=== PATIENT | male | born 1980 | race Caucasian/White ===

== ENCOUNTER 2017-09-19 13:11 | Inpatient (IN) | payer MEDICAID, SELFPAY ==
[~2017-09-19] VITALS: Ht 180.3 cm; Wt 115.8 kg
[2017-09-19 13:34] LABS: BASOPHILS # (AUTO) 0.01 x10^3/uL (0-0.1); BASOPHILS % (AUTO) 0 % (0-1); EOSINOPHILS # (AUTO) 0.02 x10^3/uL (0-0.4); EOSINOPHILS % (AUTO) 0 % (1-7); LYMPHOCYTES # (AUTO) 0.69 x10^3/uL (1-3.4); LYMPHOCYTES % (AUTO) 8 % (22-44); MD NO; MEAN CORPUSCULAR HEMOGLOBIN 30.2 pg (27.5-34.5); MEAN CORPUSCULAR HGB CONC 34.1 g/dL (33.2-36.2); MEAN CORPUSCULAR VOLUME 88.4 fL (81-97); MEAN PLATELET VOLUME 8.2 fL (7.4-10.4); MONOCYTES # (AUTO) 0.83 x10^3/uL (0.2-0.8); MONOCYTES % (AUTO) 9 % (2-9); NEUTROPHILS # (AUTO) 7.59 x10^3/uL (1.8-6.8); NEUTROPHILS % (AUTO) 83 % (42-75); PLATELET COUNT 233 x10^3/uL (130-400); RED BLOOD COUNT 4.93 x10^6/uL (4.38-5.82); RED CELL DISTRIBUTION WIDTH 12.9 % (9.4-14.8)
[2017-09-19 13:47] LABS: ALANINE AMINOTRANSFERASE 25 U/L (12-78); ALBUMIN 2.9 g/dL (3.4-5.0); ANION GAP 10 mmol/L (5-15); CALCIUM 8.8 mg/dL (8.5-10.1); CHLORIDE 99 mmol/L (98-107); CREATININE 3.69 mg/dL (0.7-1.3)
[2017-09-19 13:49] LABS: ALKALINE PHOSPHATASE 105 U/L (45-117); BILIRUBIN,TOTAL 1.4 mg/dL (0.2-1.0); TOTAL PROTEIN 8.4 g/dL (6.4-8.2)
[2017-09-19] MEDS ORDERED: SODIUM CHLORIDE 0.9% 1,000 ML IV ONE ×2 (14:41→18:14)
[2017-09-19] MEDS ORDERED: SODIUM CHLORIDE FLUSH 10ML SYR IVF ONE (15:00)
[2017-09-19] MEDS ORDERED: SODIUM CHLORIDE 0.9% 1,000ML IVBOLUS ONE ×2 (15:00→18:30)
[2017-09-19] MEDS ORDERED: CEFOTETAN PMX 1GM/50ML 50 ML IV ONE (18:00)
[2017-09-19] MEDS ORDERED: SODIUM CHLORIDE FLUSH 10ML SYR IVF PRN (18:30)
[2017-09-19] MEDS ORDERED: CEFOTETAN PMX 1GM/50ML 50 ML ONE (18:50)
[2017-09-19] MEDS: SODIUM CHLORIDE 0.9% 1,000 ML IV SCH (18:55)
[2017-09-19] MEDS ORDERED: POLYETHYLENE GLYCOL 17 GM PACKET PO PRN (19:00)
[2017-09-19] MEDS ORDERED: DOCUSATE 100 MG CAPSULE PO PRN (19:00)
[2017-09-19] MEDS ORDERED: ONDANSETRON 2MG/ML, 2ML IVPush PRN (19:00)
[2017-09-19] MEDS ORDERED: ACETAMINOPHEN 325 MG TABLET PO PRN (19:00)
[2017-09-19 19:34] LABS: MICROSCOPIC INDICATED
[2017-09-19 19:50] LABS: CULTURE INDICATED? NO
[2017-09-19 20:19] VITALS: BP 147/79
[2017-09-19] MEDS: CEFOTETAN 2 GM in DEXTROSE 5% 50 ML IV SCH (21:06)
[2017-09-19] MEDS: METRONIDAZOLE PMX 500MG/100ML 100 ML IV SCH (21:53)
[2017-09-19] MEDS: FAMOTIDINE 20 MG TABLET PO SCH (22:00)
[2017-09-19] MEDS: morphine SULFATE 10 MG/ML, 1ML IVPush PRN (23:26)
[2017-09-20 02:08] VITALS: BP 130/75
[2017-09-20 05:44] LABS: ALBUMIN 2.2 g/dL (3.4-5.0); ANION GAP 10 mmol/L (5-15); CALCIUM 8.4 mg/dL (8.5-10.1); CHLORIDE 106 mmol/L (98-107)
[2017-09-20] MEDS: METRONIDAZOLE PMX 500MG/100ML 100 ML IV SCH ×3 (05:48→22:08)
[2017-09-20] MEDS: SODIUM CHLORIDE 0.9% 1,000 ML IV SCH ×2 (05:48→17:23)
[2017-09-20] MEDS: morphine SULFATE 10 MG/ML, 1ML IVPush PRN ×3 (05:48→14:15)
[2017-09-20 05:51] LABS: MEAN CORPUSCULAR HEMOGLOBIN 29.6 pg (27.5-34.5); MEAN CORPUSCULAR HGB CONC 33.4 g/dL (33.2-36.2); MEAN CORPUSCULAR VOLUME 88.7 fL (81-97); MEAN PLATELET VOLUME 7.8 fL (7.4-10.4); PLATELET COUNT 210 x10^3/uL (130-400); RED BLOOD COUNT 4.22 x10^6/uL (4.38-5.82)
[2017-09-20 05:59] LABS: ALANINE AMINOTRANSFERASE 21 U/L (12-78); ALKALINE PHOSPHATASE 85 U/L (45-117); BILIRUBIN,TOTAL 1.1 mg/dL (0.2-1.0); CREATININE 3.23 mg/dL (0.7-1.3); TOTAL PROTEIN 6.8 g/dL (6.4-8.2)
[2017-09-20 06:20] LABS: MD YES
[2017-09-20 06:23] LABS: BANDS%(MANUAL) 16 % (0-7); EOS#(MANUAL) 0.16 x10^3/uL (0.0-0.4); EOS% (MANUAL) 2 % (1-7); LYMPH#(MANUAL) 0.81 x10^3/uL (1-3.4); LYMPHS% (MANUAL) 10 % (22-44); MONOS#(MANUAL) 1.05 x10^3/uL (0.3-2.7); MONOS% (MANUAL) 13 % (2-9); SEG#(MANUAL) 4.78 x10^3/uL (1.8-6.8); SEGS% (MANUAL) 59 % (42-75)
[2017-09-20 06:24] LABS: <PLATELET ESTIMATE> ADEQUATE
[2017-09-20 06:25] LABS: <PLT MORPHOLOGY> NORMAL PLT MORPH
[2017-09-20] MEDS: SENNA/DOCUSATE TABLET PO SCH (09:00)
[2017-09-20] MEDS: CEFOTETAN 2 GM in DEXTROSE 5% 50 ML IV SCH ×2 (09:12→21:11)
[2017-09-20] MEDS: FAMOTIDINE 20 MG TABLET PO SCH (09:12)
[2017-09-20 09:30] VITALS: BP 139/84
[2017-09-20 14:16] LABS: CLOSTRIDIUM DIFFICILE ANTIGEN NEGATIVE; CLOSTRIDIUM DIFFICILE TOXIN NEGATIVE (Negative)
[2017-09-20 15:19] VITALS: BP 151/86
[2017-09-20 19:13] VITALS: BP 146/87
[2017-09-20] MEDS: OXYcodone IR 5MG TABLET PO PRN ×2 (21:11→21:40)
[2017-09-21 01:42] VITALS: BP 155/90
[2017-09-21] MEDS: SODIUM CHLORIDE 0.9% 1,000 ML IV SCH ×4 (01:57→22:08)
[2017-09-21] MEDS: OXYcodone IR 5MG TABLET PO PRN ×4 (04:33→20:46)
[2017-09-21 05:26] LABS: MEAN CORPUSCULAR HEMOGLOBIN 30.1 pg (27.5-34.5); MEAN CORPUSCULAR HGB CONC 34.4 g/dL (33.2-36.2); MEAN CORPUSCULAR VOLUME 87.6 fL (81-97); MEAN PLATELET VOLUME 7.6 fL (7.4-10.4); PLATELET COUNT 228 x10^3/uL (130-400); RED BLOOD COUNT 4.25 x10^6/uL (4.38-5.82); RED CELL DISTRIBUTION WIDTH 13.2 % (9.4-14.8)
[2017-09-21 05:32] LABS: CHLORIDE 103 mmol/L (98-107)
[2017-09-21] MEDS: METRONIDAZOLE PMX 500MG/100ML 100 ML IV SCH ×3 (05:59→22:08)
[2017-09-21 06:01] LABS: MD YES
[2017-09-21 06:02] LABS: ALKALINE PHOSPHATASE 90 U/L (45-117); BILIRUBIN,TOTAL 1.1 mg/dL (0.2-1.0); CALCIUM 8.2 mg/dL (8.5-10.1); TOTAL PROTEIN 6.7 g/dL (6.4-8.2)
[2017-09-21 06:10] LABS: <PLATELET ESTIMATE> ADEQUATE; <PLT MORPHOLOGY> NORMAL PLT MORPH; <RBC MORPHOLOGY> NORMAL; BAND#(MANUAL) 1.04 x10^3/uL; BANDS%(MANUAL) 10 % (0-7); LYMPH#(MANUAL) 1.46 x10^3/uL (1-3.4); LYMPHS% (MANUAL) 14 % (22-44); METAMYELOCYTES# (MANUAL) 0.21 x10^3/uL (0-0); METAMYELOCYTES% (MANUAL) 2 % (0-1); MONOS#(MANUAL) 0.83 x10^3/uL (0.3-2.7); MONOS% (MANUAL) 8 % (2-9); REACTIVE LYMPHS # (MANUAL) 0.21 x10^3/uL (0-0); REACTIVE LYMPHS % (MANUAL) 2 % (0-0); SEG#(MANUAL) 6.66 x10^3/uL (1.8-6.8); SEGS% (MANUAL) 64 % (42-75)
[2017-09-21 06:31] LABS: ALANINE AMINOTRANSFERASE 18 U/L (12-78); ALBUMIN 2.1 g/dL (3.4-5.0); ANION GAP 12 mmol/L (5-15); CREATININE 2.64 mg/dL (0.7-1.3)
[2017-09-21 07:50] VITALS: BP 147/95
[2017-09-21] MEDS ORDERED: FAMOTIDINE 20 MG TABLET PO SCH (09:00)
[2017-09-21] MEDS: SENNA/DOCUSATE TABLET PO SCH (09:16)
[2017-09-21] MEDS: CEFOTETAN 2 GM in DEXTROSE 5% 50 ML IV SCH ×2 (09:16→20:51)
[2017-09-21] MEDS ORDERED: POLYETHYLENE GLYCOL 17 GM PACKET PO ONE (13:30)
[2017-09-21] MEDS ORDERED: POLYETHYLENE GLYCOL 17 GM PACKET PO PRN (13:30)
[2017-09-21 14:06] VITALS: BP 136/89
[2017-09-21 20:08] VITALS: BP 130/83
[2017-09-21] MEDS: morphine SULFATE 10 MG/ML, 1ML IVPush PRN (20:46)
[2017-09-22] MEDS: OXYcodone IR 5MG TABLET PO PRN ×6 (01:03→22:18)
[2017-09-22 02:24] VITALS: BP 142/87
[2017-09-22 04:55] LABS: ANION GAP 8 mmol/L (5-15); CALCIUM 8.1 mg/dL (8.5-10.1); CHLORIDE 109 mmol/L (98-107)
[2017-09-22 04:59] LABS: ALANINE AMINOTRANSFERASE 16 U/L (12-78); ALKALINE PHOSPHATASE 91 U/L (45-117); BILIRUBIN,TOTAL 0.5 mg/dL (0.2-1.0); CREATININE 1.87 mg/dL (0.7-1.3); TOTAL PROTEIN 6.1 g/dL (6.4-8.2)
[2017-09-22 05:00] LABS: MEAN CORPUSCULAR HEMOGLOBIN 29.9 pg (27.5-34.5); MEAN CORPUSCULAR HGB CONC 33.5 g/dL (33.2-36.2); MEAN CORPUSCULAR VOLUME 89.3 fL (81-97); MEAN PLATELET VOLUME 7.4 fL (7.4-10.4); PLATELET COUNT 248 x10^3/uL (130-400); RED BLOOD COUNT 4.14 x10^6/uL (4.38-5.82); RED CELL DISTRIBUTION WIDTH 13.2 % (9.4-14.8)
[2017-09-22] MEDS: SODIUM CHLORIDE 0.9% 1,000 ML IV SCH ×3 (05:02→20:55)
[2017-09-22 05:37] LABS: BASOPHILS # (AUTO) 0.02 x10^3/uL (0-0.1); BASOPHILS % (AUTO) 0 % (0-1); EOSINOPHILS # (AUTO) 0.15 x10^3/uL (0-0.4); EOSINOPHILS % (AUTO) 2 % (1-7); LYMPHOCYTES # (AUTO) 0.78 x10^3/uL (1-3.4); LYMPHOCYTES % (AUTO) 8 % (22-44); MD SCAN; MONOCYTES % (AUTO) 18 % (2-9); NEUTROPHILS # (AUTO) 7.16 x10^3/uL (1.8-6.8); NEUTROPHILS % (AUTO) 72 % (42-75)
[2017-09-22] MEDS: METRONIDAZOLE PMX 500MG/100ML 100 ML IV SCH ×3 (05:51→22:18)
[2017-09-22 07:05] VITALS: BP 142/92
[2017-09-22] MEDS: SENNA/DOCUSATE TABLET PO SCH (08:15)
[2017-09-22] MEDS: FAMOTIDINE 20 MG TABLET PO SCH ×2 (08:15→17:58)
[2017-09-22] MEDS: CEFOTETAN 2 GM in DEXTROSE 5% 50 ML IV SCH ×2 (08:16→20:55)
[2017-09-22] MEDS: morphine SULFATE 10 MG/ML, 1ML IVPush PRN ×2 (12:53→21:23)
[2017-09-22 14:28] VITALS: BP 147/90
[2017-09-22 20:37] VITALS: BP 132/78
[2017-09-23] MEDS: OXYcodone IR 5MG TABLET PO PRN ×6 (02:18→22:15)
[2017-09-23 02:20] VITALS: BP 147/87
[2017-09-23 05:03] LABS: MEAN CORPUSCULAR HEMOGLOBIN 29.9 pg (27.5-34.5); MEAN CORPUSCULAR HGB CONC 33.7 g/dL (33.2-36.2); MEAN CORPUSCULAR VOLUME 88.8 fL (81-97); MEAN PLATELET VOLUME 7.3 fL (7.4-10.4); PLATELET COUNT 271 x10^3/uL (130-400); RED CELL DISTRIBUTION WIDTH 13.5 % (9.4-14.8)
[2017-09-23 05:24] LABS: CHLORIDE 110 mmol/L (98-107)
[2017-09-23 05:59] LABS: BASOPHILS # (AUTO) 0.02 x10^3/uL (0-0.1); BASOPHILS % (AUTO) 0 % (0-1); EOSINOPHILS # (AUTO) 0.15 x10^3/uL (0-0.4); EOSINOPHILS % (AUTO) 1 % (1-7); LYMPHOCYTES # (AUTO) 1.05 x10^3/uL (1-3.4); LYMPHOCYTES % (AUTO) 9 % (22-44); MD SCAN; MONOCYTES # (AUTO) 1.58 x10^3/uL (0.2-0.8); MONOCYTES % (AUTO) 14 % (2-9); NEUTROPHILS # (AUTO) 8.59 x10^3/uL (1.8-6.8); NEUTROPHILS % (AUTO) 75 % (42-75)
[2017-09-23 06:16] LABS: ALANINE AMINOTRANSFERASE 14 U/L (12-78); ALKALINE PHOSPHATASE 75 U/L (45-117); ANION GAP 10 mmol/L (5-15); BILIRUBIN,TOTAL 0.5 mg/dL (0.2-1.0); CALCIUM 8.2 mg/dL (8.5-10.1); TOTAL PROTEIN 6.1 g/dL (6.4-8.2)
[2017-09-23] MEDS: METRONIDAZOLE PMX 500MG/100ML 100 ML IV SCH ×3 (06:23→22:15)
[2017-09-23] MEDS: SODIUM CHLORIDE 0.9% 1,000 ML IV SCH ×2 (06:24→16:13)
[2017-09-23 07:05] VITALS: BP 150/90
[2017-09-23] MEDS: FAMOTIDINE 20 MG TABLET PO SCH ×2 (08:41→17:18)
[2017-09-23] MEDS: SENNA/DOCUSATE TABLET PO SCH (08:41)
[2017-09-23] MEDS: CEFOTETAN 2 GM in DEXTROSE 5% 50 ML IV SCH ×2 (09:09→20:49)
[2017-09-23 14:03] VITALS: BP 135/78
[2017-09-23] MEDS: morphine SULFATE 10 MG/ML, 1ML IVPush PRN (19:26)
[2017-09-23 20:05] VITALS: BP 138/76
[2017-09-24] MEDS: OXYcodone IR 5MG TABLET PO PRN ×3 (02:16→11:10)
[2017-09-24] MEDS: SODIUM CHLORIDE 0.9% 1,000 ML IV SCH ×3 (02:16→09:38)
[2017-09-24 02:17] VITALS: BP 158/94
[2017-09-24 05:30] LABS: BASOPHILS # (AUTO) 0.01 x10^3/uL (0-0.1); BASOPHILS % (AUTO) 0 % (0-1); EOSINOPHILS # (AUTO) 0.12 x10^3/uL (0-0.4); EOSINOPHILS % (AUTO) 1 % (1-7); LYMPHOCYTES # (AUTO) 1.03 x10^3/uL (1-3.4); LYMPHOCYTES % (AUTO) 8 % (22-44); MD NO; MEAN CORPUSCULAR HEMOGLOBIN 30.1 pg (27.5-34.5); MEAN CORPUSCULAR HGB CONC 34.4 g/dL (33.2-36.2); MEAN CORPUSCULAR VOLUME 87.5 fL (81-97); MEAN PLATELET VOLUME 7.4 fL (7.4-10.4); MONOCYTES # (AUTO) 0.99 x10^3/uL (0.2-0.8); MONOCYTES % (AUTO) 8 % (2-9); NEUTROPHILS # (AUTO) 10.34 x10^3/uL (1.8-6.8); NEUTROPHILS % (AUTO) 83 % (42-75); PLATELET COUNT 288 x10^3/uL (130-400); RED BLOOD COUNT 4.24 x10^6/uL (4.38-5.82)
[2017-09-24 05:32] LABS: ALANINE AMINOTRANSFERASE 17 U/L (12-78); ANION GAP 9 mmol/L (5-15); CALCIUM 8.1 mg/dL (8.5-10.1); CHLORIDE 107 mmol/L (98-107); CREATININE 1.42 mg/dL (0.7-1.3)
[2017-09-24 05:34] LABS: ALKALINE PHOSPHATASE 73 U/L (45-117); BILIRUBIN,TOTAL 0.4 mg/dL (0.2-1.0); TOTAL PROTEIN 6.4 g/dL (6.4-8.2)
[2017-09-24] MEDS: METRONIDAZOLE PMX 500MG/100ML 100 ML IV SCH ×2 (06:14→14:20)
[2017-09-24 07:26] VITALS: BP 137/80
[2017-09-24] MEDS: SENNA/DOCUSATE TABLET PO SCH (08:32)
[2017-09-24] MEDS: FAMOTIDINE 20 MG TABLET PO SCH (08:32)
[2017-09-24] MEDS: CEFOTETAN 2 GM in DEXTROSE 5% 50 ML IV SCH (09:34)
[2017-09-24 13:31] VITALS: BP 138/80
[2017-09-24] MEDS ORDERED: ONDA4TAB7 PO (13:32)
[2017-09-24] MEDS ORDERED: TRAM50TA2 PO (13:32)
[2017-09-24] MEDS ORDERED: AMOX1TAB61 PO (13:32)
[2017-09-24 15:40] VITALS: BP 151/90
== END 2017-09-24 16:18 | disposition home or self-care (01) | DRG 371 ==
LOC: ED 18:13 → EDIP 18:14 → ED 18:33 → SUATTDRO 18:48 → 4NOR 20:01 → DCLOUNGE 09-24 16:07
PROVIDERS: ADMIT Family Medicine; ATTEND Family Medicine
DX: K35.2 Acute appendicitis with generalized peritonitis (principal); N17.0 Acute kidney failure with tubular necrosis; E43 Unspecified severe protein-calorie malnutrition; E87.1 Hypo-osmolality and hyponatremia; E86.0 Dehydration; K52.9 Noninfective gastroenteritis and colitis, unspecified; Z83.3 Family history of diabetes mellitus
CPT/HCPCS: 36415; 74022; 74176; 80053; 81001; 83690; 83735; 84100; 85025; 87324; 96361; 96365; J2270; J7030; S0074